=== PATIENT | male | born 1960 | race Caucasian/White ===

== ENCOUNTER 2017-12-24 12:01 | Day surgery (SDC) | payer OTHER ==
[2017-12-24] MEDS ORDERED: NS 1,000 ML IV (12:45)
[2017-12-24] MEDS ORDERED: LIDOCAINE 2% INJ 100 MG/5 ML SYRINGE As Ordered (13:06)
[2017-12-24] MEDS ORDERED: PROPOFOL 500 MG/50 ML VIAL As Ordered (13:06)
== END 2017-12-24 13:44 | disposition home or self-care (01) ==
LOC: M OPP 12:01
DX: Z12.11 Encounter for screening for malignant neoplasm of colon (principal); K64.1 Second degree hemorrhoids; K57.30 Diverticulosis of large intestine without perforation or abscess without bleeding; I10 Essential (primary) hypertension; M54.9 Dorsalgia, unspecified; R06.83 Snoring; F17.220 Nicotine dependence, chewing tobacco, uncomplicated; Z80.0 Family history of malignant neoplasm of digestive organs
CPT/HCPCS: 45378

== ENCOUNTER → 2018-06-03 | Outpatient (CLI) | payer OTHER ==
[~2018-06-03] MED LIST: ACET1TAB55 PO; ALEV220T26 PO
--- NOTE | 2018-06-03 19:02 | ECHO ---
DATE OF PROCEDURE: 06/03/2018 AGE: Male GENDER: 58 HEIGHT: 70 inches WEIGHT: 210 pounds BODY SURFACE AREA: 2.13 m2 PATIENT LOCATION: Outpatient. REFERRING PHYSICIAN: Rogers Huston MD INDICATION: Abnormal heart sounds. 2-D MEASUREMENTS: RV: 3.7 cm LV: 5.1 cm Septum: 1.2 cm Posterior wall: 1.2 cm Aortic root: 3.0 cm LA: 3.8 cm LVEF: 65% DOPPLER MEASUREMENTS: AV: 1.1 m/s LVOT: 0.93 m/s LVOT diameter: 2.3 cm MV-E: 60, A: 53, E/E prime ratio: 1.2 Early mitral deceleration time 264 ms E prime: 8, A prime 8.8, E/E prime ratio: 7.5 PCWP: 10 mmHg PV: 0.8 m/s Pulmonary artery acceleration time: 124 ms RVSP: 32 mmHg IVC: 1.8 cm COMMENTS: Sinus bradycardia at 55 bpm. No intraventricular conduction disturbance. M-mode and two-dimensional echocardiography was performed with pulsed, continuous wave, color flow, and tissue Doppler studies. Borderline concentric left ventricle hypertrophy with preserved systolic function. Mildly dilated left atrium with impairment of left ventricle (LV) diastolic function and currently normal estimated mean left atrial pressure. Normal right heart chamber sizes and wall motion with Doppler evidence of at least mild pulmonary hypertension. Normal IVC size and collapse against an elevated central venous pressure. Normal-appearing valvular structures and function. Normal aortic root size. No apparent intracardiac mass or pericardial effusion.
== END ==
LOC: M CARPUL 10:12
PROVIDERS: ATTEND Family Medicine
DX: R00.8 Other abnormalities of heart beat (principal)

== ENCOUNTER → 2020-11-08 | Outpatient (CLI) | payer OTHER | LOC: M CARPUL 08:27 | PROVIDERS: ATTEND Family Medicine | DX: I51.9 Heart disease, unspecified (principal) ==